=== PATIENT | female | born 1985 | race Caucasian/White ===

== ENCOUNTER → 2021-01-05 | Day surgery (SDC) | payer OTHER ==
[~2021-01-05] MED LIST: LABETALOL HCL100 MG PO; LEVOTHYROXINE200 MC1 PO; PRENATAL PO; VIT D2 PO; VIT D3 PO; XYZAL5 MG PO
[2021-01-05 09:16] LABS: HEMOGLOBIN 12.2 gm/dl (12.3-15.3); RED BLOOD COUNT 4.55 M/UL (4.00-5.10); WHITE BLOOD COUNT 8.8 K/UL (4.5-11.0)
== END | disposition home or self-care (01) ==
LOC: OR 08:49
PROVIDERS: Obstetrics & Gynecology
PROC: 10D17Z9 Manual Extraction of Products of Conception, Retained, Via Natural or Artificial Opening (ICD-10-PCS; principal; 2021-01-05 12:00)
DX: O02.1 Missed abortion (principal); I10 Essential (primary) hypertension; E55.9 Vitamin D deficiency, unspecified; F32.9 Major depressive disorder, single episode, unspecified; E03.9 Hypothyroidism, unspecified; F41.1 Generalized anxiety disorder; E88.81 Metabolic syndrome and other insulin resistance; E78.1 Pure hyperglyceridemia; Z68.41 Body mass index [BMI] 40.0-44.9, adult; Z79.899 Other long term (current) drug therapy; E66.01 Morbid (severe) obesity due to excess calories; E78.5 Hyperlipidemia, unspecified
CPT/HCPCS: 36415; 85025; J2001; J2250; J2405; J2704; J2795; J3010; J7030; J7120

== ENCOUNTER → 2022-06-10 | Outpatient (CLI) | payer OTHER | LOC: KOH-I 14:57 | DX: M79.672 Pain in left foot (principal) | CPT/HCPCS: 73630 ==

== ENCOUNTER → 2022-07-12 | Outpatient (CLI) | payer OTHER | LOC: KOH-I 08:36 | DX: S92.252D Displaced fracture of navicular [scaphoid] of left foot, subsequent encounter for fracture with routine healing (principal) | CPT/HCPCS: 73630 ==